=== PATIENT | male | born 1990 ===

== ENCOUNTER 2018-11-17 23:29 | Inpatient (IN) | payer OTHER ==
[2018-11-17 23:33] VITALS: BMI 26.6
[2018-11-18] MEDS ORDERED: ACETAMINOPHEN 1000 MG/100 ML VIAL (NON FORMULARY) IVPB ONE (00:05)
[2018-11-18] MEDS ORDERED: SODIUM CHLORIDE 1,000 ML IV STA (00:05)
[2018-11-18] MEDS ORDERED: ALBUTEROL SO4 2.5/IPRATROPIUM 0.5 INH SOL 3 ML VIAL.NEB. NEB ONE ×3 (00:06→01:51)
[2018-11-18] MEDS ORDERED: methylPREDNISolone NA SUCC 125 MG/2 ML VIAL IVPB ONE (00:06)
[2018-11-18] MEDS ORDERED: AZITHROMYCIN IVPB 500 MG in DEXTROSE 5%-WATER - 250 ML IVPB ONE (00:08)
[2018-11-18] MEDS ORDERED: ACETAMINOPHEN INJECTION 100 ML IVPB ONE (00:08)
[2018-11-18] MEDS ORDERED: CEFTRIAXONE 1,000 MG in DEXTROSE 5%-WATER - 50 ML IVPB ONE (00:08)
--- NOTE | 2018-11-18 00:18 | PDOC ---
History of Present Illness - General Chief Complaint: Shortness of Breath Stated Complaint: SHORT OF BREATH Time Seen by Provider: 11/17/18 23:53 History Source: Patient Exam Limitations: No Limitations - History of Present Illness Initial Comments: 11/18/18 00:13 Patient is a 28M with history of tobacco abuse and allergies here today complaining of 1 day of fever, shortness of breath and left sided back pain. Patient states that he smokes 1 pack every 2 weeks. 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 No sick contacts. Did not get flu shot this year. Takes no medicine. States that he had bronchitis 2 years ago. No recent antibiotic use. Past History - Past Medical History Allergies/Adverse Reactions: Allergies Allergy/AdvReac Type Severity Reaction Status Date / Time cat dander Allergy Verified 11/17/18 23:33 pollen extracts Allergy Verified 11/17/18 23:33 Home Medications: Ambulatory Orders NK [No Known Home Medication] 11/17/18 COPD: No - Suicide/Smoking/Psychosocial Hx Smoking History: Unknown if ever smoked Have you smoked in the past 12 months: No Information on smoking cessation initiated: No Hx Alcohol Use: No Drug/Substance Use Hx: No Review of Systems - Review of Systems Comments:: 11/18/18 00:16 GENERAL/CONSTITUTIONAL:+fever +chills. No weakness. HEAD, EYES, EARS, NOSE AND THROAT: No change in vision. No sore throat. CARDIOVASCULAR: No chest pain +shortness of breath RESPIRATORY: No cough, wheezing, or hemoptysis. GASTROINTESTINAL: No nausea, vomiting, diarrhea or constipation. GENITOURINARY: No dysuria, frequency, or change in urination. MUSCULOSKELETAL: No joint or muscle swelling or pain. No neck pain +back pain. SKIN: No rash NEUROLOGIC: No headache, vertigo, loss of consciousness, or change in strength/ sensation. HEMATOLOGIC/LYMPHATIC: No anemia, easy bleeding, or history of blood clots. ALLERGIC/IMMUNOLOGIC: No hives or skin allergy. *Physical Exam - Vital Signs Last Vital Signs Temp Pulse Resp BP Pulse Ox 101.8 F H 108 H 18 124/71 94 L 11/17/18 23:51 11/17/18 23:51 11/17/18 23:51 11/17/18 23:51 11/17/18 23:51 - Physical Exam Comments: 11/18/18 00:17 GENERAL: Awake, alert, and fully oriented, diaphoretic HEAD: No signs of trauma, normocephalic, atraumatic EYES: PERRLA, EOMI, sclera anicteric, conjunctiva clear ENT: Auricles normal inspection, hearing grossly normal, nares patent, oropharynx clear without exudates. Moist mucosa NECK: Normal ROM, supple, no lymphadenopathy, JVD, or masses LUNGS: No distress, speaks full sentences, coarse breath sounds with wheezing bilaterally, worse on left HEART: Tachycardic, normal S1 and S2, no murmurs, rubs or gallops, peripheral pulses normal and equal bilaterally. ABDOMEN: Soft, nontender, normoactive bowel sounds. No guarding, no rebound. No masses EXTREMITIES: Normal inspection, Normal range of motion, no edema. No clubbing or cyanosis. NEUROLOGICAL: Cranial nerves II through XII grossly intact. Normal speech, normal gait, no focal sensorimotor deficits SKIN: Warm, Dry, normal turgor, no rashes or lesions noted. ED Treatment Course - LABORATORY CBC & Chemistry Diagram: 11/18/18 00:22 11/18/18 00:22 Medical Decision Making - Medical Decision Making 11/18/18 00:17 Patient is 28M here today with shortness of breath. Vitals notable for hypoxia, tachycardia, fever. DDx includes, but is not limited to: bacterial pneumonia, copd/asthma ex, influenza. Will treat with fluids, tylenol, steroids, ceftriaxone/azithro. Will evaluate with cbc, cmp, flu, bc, ekg, cxr. 11/18/18 04:05 CBC normal. CMP reassuring CXR shows increased markings concerning for pneumonia vs copd exacerbation, given no established history of copd, will treat as pneumonia. Patient remained hypoxic, lungs coarse and wheezing. Given additional duonebs. Will admit for pneumonia given hypoxia. *DC/Admit/Observation/Transfer Diagnosis at time of Disposition: Pneumonia - Discharge Dispostion Condition at time of disposition: Stable Decision to Admit order: Yes - Referrals - Patient Instructions - Post Discharge Activity
[2018-11-18] MEDS ORDERED: AZITHROMYCIN IVPB 500 MG/250 ML BAG IVPB ONE (00:29)
[2018-11-18] MEDS ORDERED: CEFTRIAXONE 1 GM/50 ML BAG ONE (00:30)
[2018-11-18] MEDS ORDERED: methylPREDNISolone NA SUCC 125 MG/2 ML VIAL ONE (00:30)
[2018-11-18 00:37] LABS: HEMOGLOBIN 15.2 GM/dL (11.7-16.9); MCH 30.6 pg (25.7-33.7); MCHC 33.8 g/dl (32.0-35.9); MEAN CELL VOLUME 90.4 fl (80-96); MEAN PLT VOLUME 10.4 fl (7.5-11.1); PLATELET COUNT 146 K/MM3 (134-434); RBC 4.97 M/mm3 (4.00-5.60); RDW 12.7 % (11.9-15.9); WHITE BLOOD COUNT 10.2 K/mm3 (4.0-10.0)
[2018-11-18] MEDS ORDERED: IBUPROFEN 600 MG TABLET (FP) PO ONE ×2 (00:57→00:59)
[2018-11-18 01:14] LABS: ALBUMIN 3.9 g/dl (3.4-5.0); BILIRUBIN,TOTAL 0.4 mg/dL (0.2-1); CALCIUM 8.7 mg/dL (8.5-10.1); CREATININE 1.2 mg/dL (0.55-1.3); POTASSIUM 3.7 mmol/L (3.5-5.1); TOT PROT 7.2 g/dl (6.4-8.2)
--- NOTE | 2018-11-18 02:53 | PN ---
Teaching Attending Note Name of Resident: Tl Watkins ATTENDING PHYSICIAN STATEMENT I saw and evaluated the patient. I reviewed the resident's note and discussed the case with the resident. I agree with the resident's findings and plan as documented. SUBJECTIVE: Patient is a 28 year old man with a PMH of tobacco use and allergies who presents to the ER with one day of fever, cough, and SOB. 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 The patient also has decreased appetite, UNGER and greenish sputum. The patient denies any sick contact and did not get the Flu vaccine this year. The patient denies chest pain or dizziness. The patient denies chills, nausea, vomiting, diarrhea or constipation. The patient denies dysuria, frequency, urgency or hematuria. In the ER he got duoneb, IV NS, IV tylenol, PO ibuprofen, IV Azithromycin and Rocephin. OBJECTIVE: Alert Vital Signs Period Temp Pulse Resp BP Sys/Siddiqui Pulse Ox Last 24 Hr 99.0 F-101.8 F 82-114 18-25 101-138/55-89 92-96 HEENT: No Jaundice, eye redness or discharge, PERRLA, EOMI. Normocephalic, atraumatic. External ears are normal and hearing is grossly intact. No nasal discharge. Neck: Supple, nontender. No palpable adenopathy or thyromegaly. No JVD Chest: Good effort. Wheezing. Clear to percussion. Heart: Regular. No S3, rub or murmur Abdomen: Not distended, soft, nontender and no HSM. No rebound or guarding. Normal bowel sounds. Ext: Peripheral pulses intact. No leg edema. Skin: Warm and dry. No petechiae, rash or ecchymosis. Neuro: Alert. Oriented x3. CN 2-12 grossly intact. Sensation grossly intact in all four extremities and DTR are symmetric. Psych: Appropriate mood and affect. Good insight. Home Medications Medication Instructions Recorded NK [No Known Home Medication] 11/17/18 Abnormal Lab Results 11/18/18 11/18/18 00:22 00:22 WBC 10.2 H Anion Gap 7 L ASSESSMENT AND PLAN: 1. COPD exacerbation and ?Atypical pneumonia - CXR shows hyperinflation with no obvious infiltrate. Flu swab is negative. Will send urine for legionella antigen , continue duoneb, solumedrol 40 mg q 8 hours, IV rocephin and azithromycin. If SOB does not improve, will get an ECHO. EKG pending. 2. Tobacco Use Counseled on risks associated with tobacco use. We will provide patient all the necessary assistance to facilitate smoking cessation and prescribe Nicotine patch. 3. DVT prophylaxis - Lovenox 40 mg SQ q 24 hours. 4. Advance directives - Full code
--- NOTE | 2018-11-18 03:39 | HP ---
CHIEF COMPLAINT: Shortness of Breath PCP: Dr. Macario Shultz HISTORY OF PRESENT ILLNESS: Pt. is a 28 y.o. M w/ PMHx. of Bronchitis 2 years ago, presents for shortness of breath for 1 day. Pt states his shortness of breath started this morning. It is made worse by exertion. Pt. endorses a productive cough with green sputum. Pt. measured his temperature at home and found it to be 100F. Pt. denies getting the flu vaccine this year and denies being around sick contacts. The patient denies chills, nausea, vomiting, diarrhea or constipation. The patient denies dysuria, frequency, urgency or hematuria. ER course was notable for: (1)CBC, CMP, BCx., CXR (2)Azithromycin, Ceftriaxone, Tylenol, 1L NS, (3)Ibuprofen, Solumedrol Recent Travel: No PAST MEDICAL HISTORY: Bronchitis 2 years ago PAST SURGICAL HISTORY: none Social History: Smoking: Smokes 1 pack every 2 weeks Alcohol: Denies Drugs: Denies Family History: None Allergies cat dander Allergy (Verified 11/17/18 23:33) pollen extracts Allergy (Verified 11/17/18 23:33) HOME MEDICATIONS: Home Medications Medication Instructions Recorded NK [No Known Home Medication] 11/17/18 REVIEW OF SYSTEMS CONSTITUTIONAL: fever, chills, diaphoresis Absent: generalized weakness, malaise, loss of appetite, weight change HEENT: rhinorrhea, nasal congestion Absent: throat pain, throat swelling, difficulty swallowing, mouth swelling, ear pain, eye pain, visual changes CARDIOVASCULAR: chest pain Absent: syncope, palpitations, irregular heart rate, lightheadedness, peripheral edema RESPIRATORY: cough, shortness of breath, dyspnea with exertion Absent: orthopnea, wheezing, stridor, hemoptysis GASTROINTESTINAL: Absent: abdominal pain, abdominal distension, nausea, vomiting, diarrhea, constipation, melena, hematochezia GENITOURINARY: Absent: dysuria, frequency, urgency, hesitancy, hematuria, flank pain, genital pain MUSCULOSKELETAL: Absent: myalgia, arthralgia, joint swelling, back pain, neck pain SKIN: Absent: rash, itching, pallor HEMATOLOGIC/IMMUNOLOGIC: Absent: easy bleeding, easy bruising, lymphadenopathy, frequent infections ENDOCRINE: Absent: unexplained weight gain, unexplained weight loss, heat intolerance, cold intolerance NEUROLOGIC: Absent: headache, focal weakness or paresthesias, dizziness, unsteady gait, seizure, mental status changes, bladder or bowel incontinence PSYCHIATRIC: Absent: anxiety, depression, suicidal or homicidal ideation, hallucinations. PHYSICAL EXAMINATION Vital Signs - 24 hr 11/17/18 11/17/18 11/18/18 23:31 23:51 02:06 Temperature 99.0 F 101.8 F H Pulse Rate 114 H Pulse Rate [ 108 H 82 Apical] Respiratory 25 H 18 20 Rate Blood Pressure 138/89 Blood Pressure 124/71 101/55 L [Left Arm] O2 Sat by Pulse 92 L 94 L 96 Oximetry (%) GENERAL: Awake, alert, and fully oriented, in no acute distress. HEAD: Normal with no signs of trauma. EYES: Extraocular movements intact, sclera anicteric, conjunctiva clear. EARS, NOSE, THROAT: Ears normal, nares patent, oropharynx clear without exudates. Moist mucous membranes. LUNGS: Diffuse coarse breath sounds, wheezing and crackles. No accessory muscle use. HEART: Regular rate and rhythm, normal S1 and S2 without murmur ABDOMEN: Soft, nontender, not distended, normoactive bowel sounds, no guarding, no rebound, no masses. MUSCULOSKELETAL: Normal range of motion at all joints. No bony deformities or tenderness. No CVA tenderness. UPPER EXTREMITIES: 2+ radial pulses, warm, well-perfused. No cyanosis. No clubbing. No peripheral edema. LOWER EXTREMITIES: 2+ dorsal pedal pulses, warm, well-perfused. No calf tenderness. No peripheral edema. NEUROLOGICAL: Normal speech. PSYCHIATRIC: Cooperative. Good eye contact. Appropriate mood and affect. SKIN: Warm, diaphoretic, normal turgor, no rashes or lesions noted, normal capillary refill. Laboratory Results - last 24 hr 11/18/18 11/18/18 11/18/18 00:22 00:22 00:22 WBC 10.2 H RBC 4.97 Hgb 15.2 Hct 45.0 MCV 90.4 MCH 30.6 MCHC 33.8 RDW 12.7 Plt Count 146 MPV 10.4 Sodium 136 Potassium 3.7 Chloride 102 Carbon Dioxide 27 Anion Gap 7 L BUN 13 Creatinine 1.2 Est GFR (CKD-EPI)AfAm 94.80 Est GFR (CKD-EPI)NonAf 81.80 Random Glucose 105 Calcium 8.7 Total Bilirubin 0.4 AST 22 ALT 25 Alkaline Phosphatase 74 Total Protein 7.2 Albumin 3.9 Influenza A (Rapid) Negative Influenza B (Rapid) Negative ASSESSMENT/PLAN: Pt. is a 28 y.o. M presenting for shortness of breath secondary to acute bronchitis #Acute Bronchitis w/ superimposed CAP Smoking Hx. -chromosomal disorders counselor on smoking cessation CXR: shows expanded lungs, w/ pulmonary interstitial markings suggestive of COPD c/w Azithromycin and ceftriaxone Duonebs PRN Solumedrol 40mg Q8H f/u BCx, UCx. and SCx. f/u Legionella Ag and Strep Ag. #FEN no IVF, encourage Po intake monitor electrolytes and replete as needed regular diet #DVT Ppx. Lovenox 40mg SQ Visit type - Emergency Visit Emergency Visit: Yes ED Registration Date: 11/18/18 Care time: The patient presented to the Emergency Department on the above date and was hospitalized for further evaluation of their emergent condition. - New Patient This patient is new to me today: Yes Date on this admission: 11/18/18 - Critical Care Critical Care patient: No
[2018-11-18] MEDS ORDERED: cefTRIAXone SODIUM 1 GM VIAL ONE ×2 (05:32→09:06)
[2018-11-18] MEDS ORDERED: DEXTROSE 5%-WATER - 50 ML IVPB ONE ×2 (05:32→09:07)
[2018-11-18] MEDS: CEFTRIAXONE 1 GM in DEXTROSE 5%-WATER - 50 ML IVPB SCH (05:43)
[2018-11-18 07:10] LABS: BASO % 0.1 % (0-2.0); HEMATOCRIT 41.8 % (35.4-49); HEMOGLOBIN 14.3 GM/dL (11.7-16.9); LYMPH % 4.7 % (8-40); MCH 30.9 pg (25.7-33.7); MCHC 34.2 g/dl (32.0-35.9); MEAN CELL VOLUME 90.4 fl (80-96); MEAN PLT VOLUME 10.3 fl (7.5-11.1); MONO % 1.9 % (3.8-10.2); NEUT % 93.3 % (42.8-82.8); PLATELET COUNT 154 K/MM3 (134-434); RBC 4.62 M/mm3 (4.00-5.60); RDW 12.6 % (11.9-15.9); WHITE BLOOD COUNT 7.9 K/mm3 (4.0-10.0)
[2018-11-18 07:31] LABS: CALCIUM 8.6 mg/dL (8.5-10.1); CREATININE 1.2 mg/dL (0.55-1.3); MAGNESIUM 2.3 mg/dL (1.8-2.4); PHOSPHOROUS 3.1 mg/dL (2.5-4.9); POTASSIUM 4.4 mmol/L (3.5-5.1)
[2018-11-18] MEDS ORDERED: PNEUMOCOCCAL 23 VACCINE 0.5 ML VIAL IM ONE (08:15)
[2018-11-18] MEDS ORDERED: PNEUMOC 13-VAL CONJ-DIP CRM/PF 0.5 ML DISP.SYRIN IM ONE (09:00)
[2018-11-18] MEDS ORDERED: FLU VACCINE QUAD 60 MCG/0.5 ML (MDV 18-19) IM ONE (09:00)
[2018-11-18] MEDS: AZITHROMYCIN IVPB 500 MG/250 ML BAG IVPB SCH (09:27)
[2018-11-18] MEDS: methylPREDNISolone NA SUCC 40 MG/1 ML VIAL IVPUSH SCH ×2 (09:28→18:10)
[2018-11-18] MEDS: ENOXAPARIN NA (PORCINE) 40 MG/0.4 ML DISP.SYRIN SQ SCH ×2 (09:30→12:21)
--- NOTE | 2018-11-18 09:35 | EKG ---
Test Reason : Blood Pressure : / mmHG Vent. Rate : 114 BPM Atrial Rate : 114 BPM P-R Int : 132 ms QRS Dur : 092 ms QT Int : 326 ms P-R-T Axes : 061 075 030 degrees QTc Int : 449 ms SINUS TACHYCARDIA OTHERWISE NORMAL ECG NO PREVIOUS ECGS AVAILABLE Confirmed by ANNA VAUGHAN MD ([id number]) on 11/18/2018 9:35:25 AM Referred By: Confirmed By:ANNA VAUGHAN MD
--- NOTE | 2018-11-18 10:03 | PN ---
Progress Note (short form) - Note Progress Note: Events noted feeling better minimal coughing Vital Signs - 24 hr 11/17/18 11/17/18 11/18/18 23:31 23:51 02:06 Temperature 99.0 F 101.8 F H Pulse Rate 114 H Pulse Rate [ 108 H 82 Apical] Respiratory 25 H 18 20 Rate Blood Pressure 138/89 Blood Pressure 124/71 101/55 L [Left Arm] O2 Sat by Pulse 92 L 94 L 96 Oximetry (%) 11/18/18 11/18/18 11/18/18 02:39 03:08 06:02 Temperature 98.4 F 97.5 F L Pulse Rate 80 70 Pulse Rate [ Apical] Respiratory 20 18 Rate Blood Pressure 113/59 L 116/59 L Blood Pressure [Left Arm] O2 Sat by Pulse 96 95 Oximetry (%) 11/18/18 11/18/18 11/18/18 09:00 09:58 13:28 Temperature 97.5 F L 97.7 F Pulse Rate 73 76 Pulse Rate [ Apical] Respiratory 18 18 Rate Blood Pressure 127/83 129/61 Blood Pressure [Left Arm] O2 Sat by Pulse 95 Oximetry (%) Current Medications Generic Name Dose Route Start Last Admin Trade Name Freq PRN Reason Stop Dose Admin Albuterol/Ipratropium 1 amp 11/18/18 03:43 Duoneb - NEB Q6H PRN SHORTNESS OF BREATH Enoxaparin Sodium 40 mg 11/18/18 10:00 11/18/18 12:21 Lovenox - SQ Not Given DAILY OREN Ceftriaxone Sodium 1 gm/ 50 mls @ 100 mls/hr 11/18/18 03:44 11/18/18 05:43 Dextrose IVPB 100 mls/hr DAILY OREN Administration Azithromycin 500 mg in 250 mls @ 250 mls/hr 11/18/18 10:00 11/18/18 09:27 Zithromax 500mg Ivpb (Pre-Docked) IVPB 250 mls/hr DAILY OREN Administration Methylprednisolone Sodium Succinate 40 mg 11/18/18 10:00 11/18/18 09:28 Solu-Medrol - IVPUSH 40 mg Q8H-IV OREN Administration Laboratory Results - last 24 hr 11/18/18 11/18/18 11/18/18 00:22 00:22 00:22 WBC 10.2 H RBC 4.97 Hgb 15.2 Hct 45.0 MCV 90.4 MCH 30.6 MCHC 33.8 RDW 12.7 Plt Count 146 MPV 10.4 Absolute Neuts (auto) Neutrophils % Neutrophils % (Manual) Band Neutrophils % Lymphocytes % Lymphocytes % (Manual) Monocytes % Monocytes % (Manual) Eosinophils % Eosinophils % (Manual) Basophils % Basophils % (Manual) Myelocytes % (Man) Promyelocytes % (Man) Blast Cells % (Manual) Nucleated RBC % Metamyelocytes Hypochromia Platelet Estimate Polychromasia Poikilocytosis Anisocytosis Microcytosis Macrocytosis Ovalocytes Stomatocytes Sodium 136 Potassium 3.7 Chloride 102 Carbon Dioxide 27 Anion Gap 7 L BUN 13 Creatinine 1.2 Est GFR (CKD-EPI)AfAm 94.80 Est GFR (CKD-EPI)NonAf 81.80 Random Glucose 105 Calcium 8.7 Phosphorus Magnesium Total Bilirubin 0.4 AST 22 ALT 25 Alkaline Phosphatase 74 Total Protein 7.2 Albumin 3.9 Influenza A (Rapid) Negative Influenza B (Rapid) Negative 11/18/18 11/18/18 05:20 05:20 WBC 7.9 RBC 4.62 Hgb 14.3 Hct 41.8 MCV 90.4 MCH 30.9 MCHC 34.2 RDW 12.6 Plt Count 154 MPV 10.3 Absolute Neuts (auto) 7.4 Neutrophils % 93.3 H Neutrophils % (Manual) 83.3 H Band Neutrophils % 3.1 Lymphocytes % 4.7 L Lymphocytes % (Manual) 6.3 L Monocytes % 1.9 L Monocytes % (Manual) 2 L Eosinophils % 0.0 Eosinophils % (Manual) 3.1 Basophils % 0.1 Basophils % (Manual) 0.0 Myelocytes % (Man) 1 Promyelocytes % (Man) 0 Blast Cells % (Manual) 0 Nucleated RBC % 0 Metamyelocytes 0 Hypochromia 0 Platelet Estimate Decreased Polychromasia 1+ Poikilocytosis 0 Anisocytosis 2+ Microcytosis 0 Macrocytosis 0 Ovalocytes 1+ Stomatocytes 1+ Sodium 137 Potassium 4.4 Chloride 106 Carbon Dioxide 26 Anion Gap 6 L BUN 10 Creatinine 1.2 Est GFR (CKD-EPI)AfAm 94.80 Est GFR (CKD-EPI)NonAf 81.80 Random Glucose 182 H Calcium 8.6 Phosphorus 3.1 Magnesium 2.3 Total Bilirubin AST ALT Alkaline Phosphatase Total Protein Albumin Influenza A (Rapid) Influenza B (Rapid) S1 S2 RRR Lungs occasional ronchi Abd- soft, Nt no edema PLAN short course of medrol iv antibiotics smoking cessation he does not want nicotiine patches nebs Problem List - Problems (1) COPD (chronic obstructive pulmonary disease) with acute bronchitis Code(s): J44.0 - CHRONIC OBSTRUCTIVE PULMON DISEASE W ACUTE LOWER RESP INFCT; J20.9 - ACUTE BRONCHITIS, UNSPECIFIED
[2018-11-18 11:08] LABS: ANISOCYTOSIS 2+; MACROCYTOSIS 0; OVALOCYTE 1+; PLATELET ESTIMATE DECREASED
[2018-11-19] MEDS: methylPREDNISolone NA SUCC 40 MG/1 ML VIAL IVPUSH SCH ×3 (01:14→17:30)
[2018-11-19] MEDS ORDERED: DEXTROSE 5%-WATER - 50 ML IVPB ONE (08:46)
[2018-11-19] MEDS ORDERED: cefTRIAXone SODIUM 1 GM VIAL ONE (08:46)
[2018-11-19] MEDS: ENOXAPARIN NA (PORCINE) 40 MG/0.4 ML DISP.SYRIN SQ SCH (09:09)
[2018-11-19] MEDS: CEFTRIAXONE 1 GM in DEXTROSE 5%-WATER - 50 ML IVPB SCH (09:09)
[2018-11-19] MEDS: AZITHROMYCIN IVPB 500 MG/250 ML BAG IVPB SCH (09:51)
[2018-11-19] MEDS ORDERED: PNEUMOCOCCAL 23 VACCINE 0.5 ML VIAL IM ONE (10:00)
[2018-11-19 10:04] LABS: URINE APPEARANCE CLEAR; URINE BILIRUBIN NEGATIVE (NEGATIVE); URINE COLOR YELLOW; URINE GLUCOSE (UA) NEGATIVE (NEGATIVE); URINE KETONE NEGATIVE (NEGATIVE); URINE LEUK ESTERASE NEGATIVE (NEGATIVE); URINE NITRITE NEGATIVE (NEGATIVE); URINE PROTEIN NEGATIVE (NEGATIVE); URINE UROBILINOGEN 0.2 mg/dL (0.2-1.0)
--- NOTE | 2018-11-19 11:28 | PN ---
Progress Note (short form) - Note Progress Note: pt seen / examined chart reviewed awake still sob cough + afebrile Vital Signs Temp 98 F 11/19/18 08:26 Pulse 89 11/19/18 08:26 Resp 20 11/19/18 08:26 BP 132/62 11/19/18 08:26 Pulse Ox 93 L 11/18/18 21:00 Intake & Output 11/18/18 11/18/18 11/19/18 11:59 23:59 11:59 Intake Total 50 300 0 Balance 50 300 0 Weight 160 lb 0.008 oz Intake: IVPB 50 300 Oral 0 0 Other: Voiding Method Toilet Toilet Toilet Bowel Movement Yes: 1 Height 5 ft 5 in Body Mass Index (BMI) 26.6 Active Medications Albuterol/Ipratropium (Duoneb -) 1 amp NEB Q6H PRN PRN Reason: SHORTNESS OF BREATH Enoxaparin Sodium (Lovenox -) 40 mg SQ DAILY OREN Last Admin: 11/19/18 09:09 Dose: 40 mg Azithromycin (Zithromax 500mg Ivpb (Pre-Docked)) 500 mg in 250 mls @ 250 mls/ hr IVPB DAILY OREN Last Admin: 11/19/18 09:51 Dose: 250 mls/hr Methylprednisolone Sodium Succinate (Solu-Medrol -) 40 mg IVPUSH Q8H-IV OREN Last Admin: 11/19/18 09:09 Dose: 40 mg CBC, BMP 11/18/18 05:20 11/18/18 05:20 cxr -- no active disease Physical Exam. Awake/ comfortable S1 S2 RRR Lungs -- bilateral wheezes + Abd- soft, Nt no edema PLAN short course of medrol iv antibiotics -- d/c ceftriaxone continue zithromax smoking cessation provided again he does not want nicotiine patches nebs will follow Problem List - Problems (1) COPD (chronic obstructive pulmonary disease) with acute bronchitis Code(s): J44.0 - CHRONIC OBSTRUCTIVE PULMON DISEASE W ACUTE LOWER RESP INFCT; J20.9 - ACUTE BRONCHITIS, UNSPECIFIED
[2018-11-19] MEDS: ALBUTEROL SO4 2.5/IPRATROPIUM 0.5 INH SOL 3 ML VIAL.NEB. NEB PRN ×2 (11:30→21:13)
[2018-11-20] MEDS: methylPREDNISolone NA SUCC 40 MG/1 ML VIAL IVPUSH SCH ×2 (01:22→09:12)
[2018-11-20] MEDS: AZITHROMYCIN IVPB 500 MG/250 ML BAG IVPB SCH (09:11)
[2018-11-20] MEDS: ENOXAPARIN NA (PORCINE) 40 MG/0.4 ML DISP.SYRIN SQ SCH (09:12)
--- NOTE | 2018-11-20 13:00 | DS ---
Physical Examination Vital Signs: Vital Signs Temperature 98.6 F 11/20/18 08:14 Pulse Rate 74 11/20/18 08:14 Respiratory Rate 18 11/20/18 09:00 Blood Pressure 125/70 11/20/18 08:14 O2 Sat by Pulse Oximetry (%) 94 L 11/20/18 09:00 Constitutional: Yes: No Distress, Calm Cardiovascular: Yes: Regular Rate and Rhythm Respiratory: Yes: CTA Bilaterally Gastrointestinal: Yes: Normal Bowel Sounds, Soft. No: Tenderness Edema: No Labs: CBC, BMP 11/18/18 05:20 11/18/18 05:20 Discharge Summary Reason For Visit: copd exacerbation Current Active Problems COPD (chronic obstructive pulmonary disease) with acute bronchitis (Acute) Pneumonia (Acute) Hospital Course: Admitted for COPD exacerbation seen by [facility] on iv solumedrol and antibiotics pt better stable for dc home on PO zithromax Condition: Stable - Instructions Diet, Activity, Other Instructions: Admitted for COPD exacerbation-- was on IV steroids and antibiotics- Pt was admitted in this hospital from 11/18/18-- 11/20/18-- he may return to work on 11/22 stable for return to work on 11/22/18 Referrals: Trey Self MD, MD [Staff Physician] - Disposition: HOME - Home Medications Comprehensive Discharge Medication List: Ambulatory Orders Albuterol 2.5/Ipratropium 0.5 [Duoneb -] 1 amp NEB Q6H PRN #30 amp 11/20/18 Azithromycin [Zithromax] 500 mg PO DAILY #4 tablet 11/20/18 Nebulizer [Aeroeclipse II] 1 each MC TID #1 each 11/20/18
[2018-11-20 13:45] VITALS: BP 121/85; PULSE 75; TEMP 97.7
== END 2018-11-20 14:04 | disposition home or self-care (01) | DRG 192 ==
LOC: JER 23:29 → JERBED 11-18 03:08 → J7W 11-18 04:05
PROVIDERS: ADMIT Internal Medicine; ATTEND Internal Medicine
DX: J44.1 Chronic obstructive pulmonary disease with (acute) exacerbation (principal); F17.210 Nicotine dependence, cigarettes, uncomplicated; J44.0 Chronic obstructive pulmonary disease with (acute) lower respiratory infection; J20.9 Acute bronchitis, unspecified; R09.02 Hypoxemia; R50.9 Fever, unspecified
CPT/HCPCS: 36415; 71046-TC-FY; 80048; 80053; 81003; 83735; 84100; 85025; 85027; 87040; 87070; 87205; 87804; 87899; 90688; 90732; 93005; 93010; 94640; 97116-GP; 97161-GP; 99283-25; G0008; G0009; J0131; J7030